=== PATIENT | female | born 1950 | race Caucasian/White ===

== ENCOUNTER → 2016-11-15 | Outpatient (CLI) | payer MEDICARE, BC ==
--- NOTE | ~2016-11-15 | CT138 ---
[facility] A Service of [facility] RADIOLOGY TEXT RESULTS PATIENT: [facility]AY[facility]OWER [facility] #: [id number] AGE: [address]: Vidal Lopez MD SEX: F ORDER DR: [id number] [facility]. [place], [place] [address] [id number] O MR#: [id number] [facility] #: [id number] NAME: KAYLIE POWER : 1950 SEX: F STUDY DATE/TIME: 11/15/2016 14:45 UNIT: [facility] ROOM: STUDY DESCRIPTION: CT Lung screening initial Attending Physician: Vidal Lopez M.D. Referring Physician: Vidal Lopez M.D. Ordering Physician: Vidal Lopez M.D. Primary Care Physician: Vidal Lopez M.D. MEDICAL IMAGING REPORT This report is preliminary unless electronic signature is present EXAM CT chest INDICATION Lung cancer screening. 66-year-old female is a former smoker with a 30 pack/year history of smoking. 4-year smoking cessation. TECHNIQUE CT of the thorax without contrast. Coronal and sagittal reconstructions were obtained. Exam was performed as a low-dose chest CT using lung cancer screening protocol. CTDI volume 2.95 mGy. DLP 104.7 mGy-cm. This CT exam was performed with one or more of the following radiation dose reduction techniques: automatic exposure control, adjustment of mA and/or kV according to patient size, and iterative reconstruction. COMPARISON None available. FINDINGS There is a negative lung cancer screening. No suspicious pulmonary findings are identified. There is mild centrilobular emphysema. There is a linear area of scarring and/or atelectasis in the lingula. The central airways are patent. No pathologically-enlarged mediastinal or hilar lymph nodes. No pericardial or pleural effusion. Thoracic aorta is normal in caliber. A small well-circumscribed low-attenuation nodule in the superior right breast (12 o'clock position) measures 1.1 cm. This previously measured 2.2 cm on the mammogram from 2013 and measured 1.4 cm on the mammogram from June of 2015. This is considered a benign finding. There is an [facility]. [facility] A Service of [facility] RADIOLOGY TEXT RESULTS PATIENT: KAYLIE POWER LOCATION: [facility] : 46 UNIT #: [id number] AGE: [address]: Vidal Lopez MD SEX: F ORDER DR: exophytic cyst off the superior right kidney. No acute osseous abnormalities. IMPRESSION 1. Negative lung cancer screening. 2. Mild emphysema. ACR-Lung RADS Classification 1, Negative examination. RECOMMENDATIONS Annual lung cancer screening with a low-dose chest CT. Dictated by... Erick Stroud M.D. THIS IS AN ELECTRONICALLY VERIFIED REPORT Erick Stroud M.D. at 11/16/2016 8:08 AM CARI/shalom TD: 11/15/2016 16:21 JOB #: [id number] MEDICAL IMAGING REPORT Page 1 of 1 COPY
== END | disposition home or self-care (01) ==
LOC: CCAT 14:24
DX: Z87.891 Personal history of nicotine dependence (principal); J43.9 Emphysema, unspecified
CPT/HCPCS: G0297